=== PATIENT | female | born 1965 | race Asian ===

== ENCOUNTER → 2020-08-03 13:41 | Outpatient (CLI) | payer OTHER, SELFPAY ==
[2020-08-03] MEDS: COVID-19 VACC #1, MRNA(MOD) 100 MCG/0.5 ML VIAL IM (13:52)
== END ==
PROVIDERS: Visit Provider Internal Medicine
DX: Z23 Encounter for immunization (principal)
CPT/HCPCS: 0011A; 91301

== ENCOUNTER → 2020-09-01 14:22 | Outpatient (CLI) | payer OTHER, SELFPAY ==
[2020-09-01] MEDS: COVID-19 VACC #2, MRNA(MOD) 100 MCG/0.5 ML VIAL IM (14:27)
== END ==
PROVIDERS: Visit Provider Internal Medicine
DX: Z23 Encounter for immunization (principal)
CPT/HCPCS: 0012A; 91301